=== PATIENT | male | born 1995 | race Caucasian/White ===

== ENCOUNTER 2023-06-13 13:28 | Emergency (ER) | payer BC ==
[~2023-06-13] VITALS: Ht 177.8 cm; Wt 74.8 kg
[2023-06-13 13:58] VITALS: TEMP 98.7
[2023-06-13] MEDS ORDERED: IBUPROFEN 600 MG TABLET PO ONE (15:30)
[2023-06-13] MEDS ORDERED: SULFAMETH/TRIMETH 800/160 MG 1 UDTAB TABLET PO ONE (15:30)
[2023-06-13] MEDS ORDERED: SULFAMETH/TRIMETH 800/160 MG 1 UDTAB TABLET ONE (15:46)
[2023-06-13] MEDS ORDERED: IBUPROFEN 600 MG TABLET ONE (15:46)
[2023-06-13] MEDS ORDERED: LIDOCAINE 1%-EPI 1:100,000 20 ML VIAL ONE (16:20)
[2023-06-13] MEDS ORDERED: LIDOCAINE 1%-EPI 1:100,000 20 ML VIAL TP ONE (16:30)
[2023-06-13] MEDS ORDERED: SULF1TAB48 PO (17:20)
[2023-06-13 17:36] VITALS: BP 125/60; O2SAT 100
== END 2023-06-13 17:37 | disposition home or self-care (01) ==
LOC: ER 13:36
DX: L02.11 Cutaneous abscess of neck (principal); Z60.2 Problems related to living alone; Z88.1 Allergy status to other antibiotic agents
CPT/HCPCS: 99284; 10060; A6403; J3490